=== PATIENT | male | born 1985 | race African-American/Black ===

== ENCOUNTER 2025-02-11 11:58 | Emergency (ER) | payer MEDICAID ==
[~2025-02-11] VITALS: Ht 172.7 cm; Wt 75.0 kg
[2025-02-11 12:11] VITALS: O2SAT 100
[2025-02-11 13:08] LABS: BASOPHILS % 0.2 % (0.0-2.0); EOSINOPHILS % 0.1 % (0.0-5.0); HEMATOCRIT. 51.3 % (42.0-52.0); HEMOGLOBIN. 16.9 g/dL (14.0-18.0); LYMPHOCYTES % 10.4 % (20.0-50.0); MEAN PLATELET VOLUME 8.0 fl (7.4-10.4); MONOCYTES % 4.6 % (2.0-8.0); NEUTROPHILS % 84.7 % (40.0-76.0); PLATELET 269 x1000/uL (130-400); RED BLOOD CELL COUNT 5.73 mill/uL (4.7-6.1); RED CELL DISTRIBUTION WIDTH 13.2 % (11.6-14.6)
[2025-02-11] MEDS: SODIUM CHLORIDE 0.9% 1,000 ML IV ONE (13:08)
[2025-02-11 13:26] LABS: CREATININE 1.1 mg/dL (0.6-1.3)
[2025-02-11 13:27] LABS: PROTEIN TOTAL 6.3 g/dL (6.0-8.3); TROPONIN I HIGH SENSITIVITY 5 ng/L (3.0-53); UREA NITROGEN BLOOD 6 mg/dL (9-23)
[2025-02-11 13:28] LABS: ASPARTATE AMINOTRANSFERASE 27 IU/L (<34)
[2025-02-11 13:29] LABS: BILIRUBIN DIRECT 0.1 mg/dL (<=3.0); BILIRUBIN TOTAL 0.6 mg/dL (0.1-1.0)
[2025-02-11 15:09] VITALS: BP 111/61; PULSE 56; RESP 17; TEMP 36.6; O2SAT 100
[2025-02-11 15:12] LABS: TROPONIN I HIGH SENSITIVITY 7 ng/L (3.0-53)
== END 2025-02-11 15:19 | disposition home or self-care (01) ==
LOC: ER 13:33 → CANBEDREQ 15:00 → ER 15:19
DX: R55 Syncope and collapse (principal); E78.00 Pure hypercholesterolemia, unspecified; F17.200 Nicotine dependence, unspecified, uncomplicated
CPT/HCPCS: 99291; 80076; 80048; 83735; 85025; 84484; 36415; 93005; J7030